=== PATIENT | female | born 1985 | race American Indian/Alaskan Native ===

== ENCOUNTER 2016-07-03 01:07 | Emergency (ER) | payer SELFPAY ==
[2016-07-03] MEDS ORDERED: MORPHINE IV ONE (03:09)
[2016-07-03] MEDS ORDERED: ZOFRAN IV ONE (03:09)
[2016-07-03 04:24] LABS: Anion Gap 16 mmol/L; Blood Urea Nitrogen 10 mg/dL (7-17); Calcium 8.3 mg/dL (8.4-10.2); Carbon Dioxide 21 mmol/L (22-30); Chloride 99.4 mmol/L (98-107); Glucose 102 mg/dL (65-100); Potassium 3.7 mmol/L (3.6-5.0); Sodium 133 mmol/L (137-145)
--- NOTE | 2016-07-03 04:37 | Ultrasound Report ---
FINAL REPORT PROCEDURE: US TRANSVAGINAL TECHNIQUE: Real-time transabdominal sonography in multiple planes of the pelvis was performed. The pelvic structures, especially the ovaries were not optimally visualized. Transvaginal sonography was then performed to better evaluate the structures and/or abnormalities described below with image documentation. CPT 69037 and 41231 HISTORY: post bleeding COMPARISON: No prior studies are available for comparison. FINDINGS: UTERUS Size: 14.5 x 8.7 x 10.5 cm. Endometrial thickness: The endometrium is thickened in the lower uterine segment this measures up to 3.9 centimeters. The echogenicity is mixed. This is most consistent with material in the lower uterine segment. No definitive retained products are noted.. Orientation: anteverted. Cervix: Normal. Fibroids/masses: None. RIGHT Ovary: Not visualized LEFT Ovary: Not visualized Pelvic fluid: None. Other: None. IMPRESSION: The uterus is enlarged with findings consistent with status as discussed. No definitive retained products are identified on this study. Neither ovary is visualized.
--- NOTE | 2016-07-03 04:37 | Ultrasound Report ---
FINAL REPORT PROCEDURE: Pelvic ultrasound with transabdominal and transvaginal imaging TECHNIQUE: Real-time transabdominal sonography in multiple planes of the pelvis was performed. The pelvic structures, especially the ovaries were not optimally visualized. Transvaginal sonography was then performed to better evaluate the structures and/or abnormalities described below with image documentation. CPT 82231 and 37701 HISTORY: post bleeding COMPARISON: No prior studies are available for comparison. FINDINGS: UTERUS Size: 14.5 x 8.7 x 10.5 cm. Endometrial thickness: The endometrium is thickened in the lower uterine segment this measures up to 3.9 centimeters. The echogenicity is mixed. This is most consistent with material in the lower uterine segment. No definitive retained products are noted.. Orientation: anteverted. Cervix: Normal. Fibroids/masses: None. RIGHT Ovary: Not visualized LEFT Ovary: Not visualized Pelvic fluid: None. Other: None. IMPRESSION: The uterus is enlarged with findings consistent with status as discussed. No definitive retained products are identified on this study. Neither ovary is visualized.
[2016-07-03 04:57] LABS: Basophils % (Auto) 0.3 % (0.0-1.8); Eosinophils % (Auto) 0.5 % (0.0-4.3); Hematocrit 31.5 % (30.3-42.9); Hemoglobin 10.4 gm/dl (10.1-14.3); Mean Corpuscular HGB Conc 33 % (30-34); Mean Corpuscular Hemoglobin 29 pg (28-32); Mean Corpuscular Volume 88 fl (79-97); Platelet Count 234 K/mm3 (140-440); Red Blood Count 3.56 M/mm3 (3.65-5.03); Red Cell Distribution Width 14.7 % (13.2-15.2); White Blood Count 16.7 K/mm3 (4.5-11.0)
[2016-07-03] MEDS ORDERED: TORADOL IV ONE (04:59)
[2016-07-03] MEDS ORDERED: NACL 0.9% 1000 ML 1,000 ML IV ONE (04:59)
[2016-07-03] MEDS ORDERED: SUBLIMAZE IV ONE (06:23)
[2016-07-03] MEDS ORDERED: NACL ONE (06:27)
--- NOTE | 2016-07-03 06:32 | Emergency Department Report ---
HPI - General Chief Complaint: Abdominal Pain Time Seen by Provider: 07/03/16 03:34 - HPI HPI: Room 24 The patient is a 31-year-old female presenting with chief complaint of abdominal pain. The patient states she is 2 days (06/30/2016) having delivered at [facility] by Dr. Cheek ([phone]; [phone]). The patient states her pain began the day she delivered. Patient states she is still having vaginal bleeding approximately 5-6 pads per day. Patient denies fever but does admit to chills. Patient complains of pain in the suprapubic and low back. Patient denies dysuria. The patient gives her pain a score of 9/ 10. The patient states she is not breast-feeding Location: [see above] Duration: 2 days Quality: Pain Severity: 9/10 Modifying factors: [see above] Context: [see above] Mode of transportation: [not driving] ED Past Medical Hx - Past Medical History Previous Medical History?: Yes Additional medical history: hypothyroidism - Surgical History Past Surgical History?: Yes Additional Surgical History: thyroid - Family History Family history: no significant - Social History Smoking Status: Never Smoker Substance Use Type: None - Medications Home Medications: Home Medications Medication Instructions Recorded Confirmed Last Taken Type Prednisone [predniSONE 10 mg 10 mg PO .TAPER #1 tab.ds.pk 06/04/15 Unknown Rx (6-Day Pack, 21 Tabs)] oxyCODONE /ACETAMINOPHEN [Percocet 1 tab PO Q6HR PRN #14 tablet 06/04/15 Unknown Rx 5/325] Doxycycline [Vibramycin CAP] 100 mg PO Q12HR #20 capsule 07/03/16 Unknown Rx oxyCODONE /ACETAMINOPHEN [Percocet 1 - 2 tab PO Q6HR PRN #14 tablet 07/03/16 Unknown Rx 5/325] ED Review of Systems ROS: Stated complaint: ABD PAIN/BLEEDING Other details as noted in HPI Comment: All other systems reviewed and negative Constitutional: chills. denies: fever Eyes: denies: eye pain, eye discharge, vision change ENT: denies: ear pain, throat pain Respiratory: denies: cough, shortness of breath, wheezing Cardiovascular: denies: chest pain, palpitations Endocrine: no symptoms reported Gastrointestinal: abdominal pain Genitourinary: abnormal menses Musculoskeletal: back pain Skin: denies: rash, lesions Neurological: denies: headache, weakness, paresthesias Psychiatric: denies: anxiety, depression Hematological/Lymphatic: denies: easy bleeding, easy bruising Physical Exam - Physical Exam Vital Signs: Vital Signs 07/03/16 07/03/16 01:38 01:48 Temperature 98.1 F Pulse Rate 74 Respiratory 20 24 Rate Blood Pressure 126/88 Blood Pressure 126/88 [Left] O2 Sat by Pulse 100 99 Oximetry Physical Exam: GENERAL: The patient is well-developed well-nourished female lying on stretcher tearful. In moderate discomfort. [] HEENT: Normocephalic. Atraumatic. Extraocular motions are intact. Patient has moist mucous membranes. NECK: Supple. Trachea midline CHEST/LUNGS: Clear to auscultation. There is no respiratory distress noted. HEART/CARDIOVASCULAR: Regular. There is no tachycardia. There is no gallop rub or murmur. ABDOMEN: Abdomen is soft, with suprapubic tenderness to palpation. Patient has normal bowel sounds. There is no abdominal distention. SKIN: There is no rash. There is no edema. There is no diaphoresis. NEURO: The patient is awake, alert, and oriented. The patient is cooperative. The patient has normal speech and gait. MUSCULOSKELETAL: There is no evidence of acute injury. PELVIC: Patient refused pelvic exam ED Course Vital Signs 07/03/16 07/03/16 01:38 01:48 Temperature 98.1 F Pulse Rate 74 Respiratory 20 24 Rate Blood Pressure 126/88 Blood Pressure 126/88 [Left] O2 Sat by Pulse 100 99 Oximetry - Reevaluation(s) Reevaluation #1: 07/03/16 09:08 Patient states last dose of pain medication helped her pain. 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 Okay with prescription for Percocet. Have patient follow-up in office next week ED Medical Decision Making - Lab Data Result diagrams: 07/03/16 03:49 07/03/16 03:49 Laboratory Tests 07/03/16 07/03/16 07/03/16 03:49 03:49 03:49 WBC 16.7 H RBC 3.56 L Hgb 10.4 Hct 31.5 MCV 88 MCH 29 MCHC 33 RDW 14.7 Plt Count 234 Lymph % (Auto) 9.1 L [place] % (Auto) 6.5 Eos % (Auto) 0.5 Baso % (Auto) 0.3 Lymph # 1.5 Lincoln # 1.1 H Eos # 0.1 Baso # 0.0 Seg Neutrophils % 83.6 H Seg Neutrophils # 14.0 H Sodium 133 L Potassium 3.7 Chloride 99.4 Carbon Dioxide 21 L Anion Gap 16 BUN 10 Creatinine 0.5 L Estimated GFR > 60 BUN/Creatinine Ratio 20.00 Glucose 102 H Calcium 8.3 L Urine Color Urine Turbidity Urine pH Urine Protein Urine Glucose (UA) Urine Ketones Urine Blood Urine Nitrite Urine Bilirubin Urine Urobilinogen Ur Leukocyte Esterase Urine WBC (Auto) Urine RBC (Auto) U Epithel Cells (Auto) Urine Bacteria (Auto) Blood Type O POSITIVE Antibody Screen TNR TUNDE Antibody Screen Negative 07/03/16 08:31 WBC RBC Hgb Hct MCV MCH MCHC RDW Plt Count Lymph % (Auto) Lincoln % (Auto) Eos % (Auto) Baso % (Auto) Lymph # Lincoln # Eos # Baso # Seg Neutrophils % Seg Neutrophils # Sodium Potassium Chloride Carbon Dioxide Anion Gap BUN Creatinine Estimated GFR BUN/Creatinine Ratio Glucose Calcium Urine Color Straw Urine Turbidity Clear Urine pH 7.0 Urine Protein <15 mg/dl Urine Glucose (UA) Neg Urine Ketones Neg Urine Blood Lg Urine Nitrite Neg Urine Bilirubin Neg Urine Urobilinogen 2.0 Ur Leukocyte Esterase Tr Urine WBC (Auto) 15.0 H Urine RBC (Auto) 28.0 U Epithel Cells (Auto) 1.0 Urine Bacteria (Auto) 1+ Blood Type Antibody Screen TUNDE Antibody Screen - Radiology Data Radiology results: report reviewed (pelvic ultrasound), image reviewed (pelvic ultrasound) Pelvic ultrasound (read by radiologist)-the uterus is enlarged with findings consistent with status. No definitive retained products identified on the study. Neither ovary is visualized. - Differential Diagnosis retained products of conception, UTI, pyelonephritis, appendicitis Critical care attestation.: If time is entered above; I have spent that time in minutes in the direct care of this critically ill patient, excluding procedure time. ED Disposition Clinical Impression: pain, UTI (urinary tract infection), Leukocytosis Disposition: DISCHARGED TO HOME OR SELFCARE Is pt being admited?: No Does the pt Need Aspirin: No Condition: Stable Instructions: Abdominal Pain (ED) Additional Instructions: Return to the emergency department immediately should you develop worsening symptoms, fever, inability to tolerate food or liquid or any other concerns. Prescriptions: Doxycycline [Vibramycin CAP] 100 mg PO Q12HR #20 capsule oxyCODONE /ACETAMINOPHEN [Percocet 5/325] 1 - 2 tab PO Q6HR PRN #14 tablet PRN Reason: Pain Referrals: PRIMARY CARE, [Primary Care Provider] - 3-[address] Cheek, your BLANKET FOLDER [Other] - 7-10 days Time of Disposition: 09:25
--- NOTE | 2016-07-03 07:41 | Cat Scan Report ---
CT scan of abdomen and pelvis with IV contrast: Findings: Normal liver, spleen, pancreas and gallbladder. Normal adrenals and kidney parenchyma. No evidence of hydronephrosis. No free intraperitoneal fluid or air. No evidence of adenopathy. Enlarged uterus with thickened endometrium. Mixed attenuation within the thickened endometrium probably hemorrhagic. Endometritis cannot be excluded. No retained products of conceptus is seen. No mass at adnexa. Gaseous colon with moderate volume stool in colon. Fluid filled loops of small bowel are noted and do not appear to be distended. No definite mesenteric edema noted. Probably normal findings the possibility of enteritis cannot be excluded. Multiple nodular densities in subcutaneous tissue posteriorly around the pelvis probably varicose veins. Impression: Changes in uterus probably . Endometritis cannot be excluded. Additional findings as detailed above.
[2016-07-03 08:38] VITALS: BP 120/78
[2016-07-03 08:58] LABS: Bacteria,Urine 1+ /HPF (Negative); Bilirubin,Urine NEG (Negative); Blood,Urine LG (Negative); Ketones,Urine NEG (Negative); Leukocyte Esterase,Urine TR (Negative); Nitrite,Urine NEG (Negative); Protein,Urine <15 mg/dL mg/dL (Negative)
[2016-07-03] MEDS ORDERED: ROCEPHIN/NS 1 GM/50 ML 1 GM/50 ML BAG IV ONE (09:20)
== END 2016-07-03 10:34 | disposition home or self-care (01) ==
LOC: ED 01:07
DX: N39.0 Urinary tract infection, site not specified (principal); D72.829 Elevated white blood cell count, unspecified; E03.9 Hypothyroidism, unspecified
CPT/HCPCS: 36415; 74177; 76830; 76856; 80048; 81001; 85025; 86850; 86900; 86901; 96361; 96365; 96375; 99285; J0696; J1885; J2270; J2405; J3010; J7030; Q9967

== ENCOUNTER 2017-11-19 01:51 | Emergency (ER) | payer MEDICAID ==
[2017-11-19 03:32] VITALS: BP 98/63
[2017-11-19] MEDS ORDERED: TORADOL IM ONE (03:54)
[2017-11-19] MEDS ORDERED: ZOFRAN ODT ONE (04:00)
[2017-11-19] MEDS ORDERED: ZOFRAN ODT PO ONE (04:04)
[2017-11-19 04:30] LABS: Basophils % (Auto) 0.6 % (0.0-1.8); Eosinophils # (Auto) 0.1 K/mm3 (0.0-0.4); Eosinophils % (Auto) 0.9 % (0.0-4.3); Hematocrit 34.8 % (30.3-42.9); Hemoglobin 11.3 gm/dl (10.1-14.3); Lymphocytes # (Auto) 1.2 K/mm3 (1.2-5.4); Lymphocytes % (Auto) 15.6 % (13.4-35.0); Mean Corpuscular HGB Conc 32 % (30-34); Mean Corpuscular Hemoglobin 29 pg (28-32); Mean Corpuscular Volume 90 fl (79-97); Monocytes # (Auto) 0.6 K/mm3 (0.0-0.8); Monocytes % (Auto) 7.6 % (0.0-7.3); Platelet Count 220 K/mm3 (140-440); Red Blood Count 3.87 M/mm3 (3.65-5.03); Red Cell Distribution Width 14.2 % (13.2-15.2)
[2017-11-19 04:42] LABS: BUN/Creatinine Ratio 27; Blood Urea Nitrogen 16 mg/dL (7-17); Calcium 9.3 mg/dL (8.4-10.2); Hemolysis Index 10
--- NOTE | 2017-11-19 05:11 | XRay Report ---
FINAL REPORT EXAM: XR CHEST ROUTINE 2V HISTORY: cough and fever TECHNIQUE: PA and lateral views of the chest were submitted. FINDINGS: The heart size and mediastinum appear normal. The lungs are clear. Pleural fluid is not seen. The bones and soft tissues do not show any acute changes. IMPRESSION: Normal chest.
--- NOTE | 2017-11-19 05:18 | Emergency Department Report ---
ED Fever HPI - General Chief Complaint: Fever Stated Complaint: FEVER,VOMITING Time Seen by Provider: 11/19/17 05:14 - History of Present Illness Initial Comments: 32-year-old -[place] female comes in for cough and shortness of breath Raynaud's and nasal congestion 2 weeks. Patient reports that she now has a sore throat since she had vomited tonight 1. Patient reports that both [place] sick. Patient has not taken any medication for fever or cold medication. Patient does admit to postnasal drip. Patient reports a past medical history of hypothyroidism and is currently on Synthroid. He has no known drug allergies. Timing/Duration: week (2) Fever Therapy DATASTAGE ARCHITECT: none Associated Symptoms: cough, headache ED Review of Systems ROS: Stated complaint: FEVER,VOMITING Other details as noted in HPI Constitutional: fever ENT: throat pain, congestion Respiratory: cough Gastrointestinal: vomiting (times 1) ED Past Medical Hx - Past Medical History Additional medical history: hypothyroidism - Surgical History Additional Surgical History: thyroid - Social History Smoking Status: Current Every Day Smoker Substance Use Type: None - Medications Home Medications: Home Medications Medication Instructions Recorded Confirmed Last Taken Type Doxycycline [Vibramycin CAP] 100 mg PO Q12HR #20 capsule 07/03/16 Unknown Rx Iron,Carb/Vit C/Vit B12/Folic 1 each PO DAILY 07/03/16 07/03/16 07/02/16 History [Iron 100 Plus Tablet] Levothyroxine (Nf) [Synthroid] 200 mcg PO QAM 07/03/16 07/03/16 07/02/16 History oxyCODONE /ACETAMINOPHEN [Percocet 1 - 2 tab PO Q6HR PRN #14 tablet 07/03/16 Unknown Rx 5/325] Benzonatate [Tessalon Perle] 100 mg PO TID #30 capsule 11/19/17 Unknown Rx Dexchlorpheniram/Phenylephrine 1 each PO Q6H #15 tab 11/19/17 Unknown Rx [Rymed Tablet] Ibuprofen [Motrin 600 MG tab] 600 mg PO Q8H PRN #15 tablet 11/19/17 Unknown Rx ED Physical Exam - General Limitations: No Limitations General appearance: alert, in no apparent distress - Head Head exam: Present: atraumatic, normocephalic - Eye Eye exam: Present: EOMI - ENT ENT exam: Present: mucous membranes moist - Expanded ENT Exam Expanded Throat exam: Positive: tonsillar erythema. Negative: tonsillomegaly, tonsillar exudate - Neck Neck exam: Present: tenderness, full ROM. Absent: lymphadenopathy - Respiratory Respiratory exam: Present: normal lung sounds bilaterally. Absent: respiratory distress - Cardiovascular Cardiovascular Exam: Present: regular rate, normal rhythm. Absent: systolic murmur, diastolic murmur, rubs, gallop - Neurological Exam Neurological exam: Present: alert, oriented X3 - Psychiatric Psychiatric exam: Present: normal affect, normal mood - Skin Skin exam: Present: warm, dry, intact, normal color. Absent: rash ED Course Vital Signs 11/19/17 02:13 Temperature 98.8 F Pulse Rate 80 Respiratory 18 Rate Blood Pressure 98/63 O2 Sat by Pulse 100 Oximetry ED Medical Decision Making - Lab Data Result diagrams: 11/19/17 04:08 11/19/17 04:08 - Medical Decision Making Patient has been evaluated by this provider fast track. Toradol given for pain management A rapid strep has been sent off has come back negative Discharge patient on Tessalon Perles, ibuprofen, Rymed Critical care attestation.: If time is entered above; I have spent that time in minutes in the direct care of this critically ill patient, excluding procedure time. ED Disposition Clinical Impression: Allergic rhinitis Qualifiers: Allergic rhinitis trigger: unspecified Allergic rhinitis seasonality: unspecified Qualified Code(s): J30.9 - Allergic rhinitis, unspecified Disposition: DC-01 TO HOME OR SELFCARE Is pt being admited?: No Does the pt Need Aspirin: No Condition: Stable Instructions: Allergic Rhinitis (ED) Additional Instructions: Please take medication as prescribed. If her symptoms persist or gets worse please follow up with her primary care provider Prescriptions: Benzonatate [Tessalon Perle] 100 mg PO TID #30 capsule Dexchlorpheniram/Phenylephrine [Rymed Tablet] 1 each PO Q6H #15 tab Ibuprofen [Motrin 600 MG tab] 600 mg PO Q8H PRN #15 tablet PRN Reason: Pain Referrals: PRIMARY CARE, [Primary Care Provider] - 3-5 Days [facility] [Provider Group] - 3-5 Days Forms: Work/School Release Form(ED)
[2017-11-19] MEDS ORDERED: NORCO 5/325 PO ONE (05:44)
== END 2017-11-19 06:05 | disposition home or self-care (01) ==
LOC: ED 01:51
DX: J30.9 Allergic rhinitis, unspecified (principal); E03.9 Hypothyroidism, unspecified; F17.200 Nicotine dependence, unspecified, uncomplicated
CPT/HCPCS: 36415; 71046; 80048; 84703; 85025; 87116; 87430; 96372; 99284; J1885; Q0162

== ENCOUNTER 2018-05-28 10:35 | Emergency (ER) | payer MEDICAID ==
[2018-05-28 10:42] VITALS: BP 113/77
[2018-05-28 12:38] LABS: Basophils # (Auto) 0.1 K/mm3 (0.0-0.1); Basophils % (Auto) 0.5 % (0.0-1.8); Eosinophils % (Auto) 0.4 % (0.0-4.3); Hematocrit 38.6 % (30.3-42.9); Hemoglobin 12.7 gm/dl (10.1-14.3); Lymphocytes # (Auto) 1.6 K/mm3 (1.2-5.4); Lymphocytes % (Auto) 13.8 % (13.4-35.0); Mean Corpuscular HGB Conc 33 % (30-34); Mean Corpuscular Volume 87 fl (79-97); Monocytes # (Auto) 0.5 K/mm3 (0.0-0.8); Monocytes % (Auto) 4.3 % (0.0-7.3); Platelet Count 276 K/mm3 (140-440); Red Blood Count 4.45 M/mm3 (3.65-5.03)
--- NOTE | 2018-05-28 12:50 | XRay Report ---
AP CHEST: HISTORY: Fatigue AP view of the chest demonstrates a normal mediastinal and cardiac contour with clear lungs and normal bony and soft tissue structures. IMPRESSION: Unremarkable AP chest.
[2018-05-28 13:00] LABS: Alanine Aminotransferase 21 units/L (7-56); Albumin 4.3 g/dL (3.9-5); BUN/Creatinine Ratio 29; Blood Urea Nitrogen 20 mg/dL (7-17); Calcium 9.1 mg/dL (8.4-10.2); Hemolysis Index 7
--- NOTE | 2018-05-28 13:49 | Emergency Department Report ---
ED General Adult HPI - General Chief complaint: Weakness Stated complaint: N,V/ARM LIMP,SWELLING,WEAKNESS Time Seen by Provider: 05/28/18 11:28 Source: patient Mode of arrival: Ambulatory Limitations: No Limitations - History of Present Illness Initial comments: The patient presents to emergency department with a chief complaint of fatigue and feeling weak. Patient also complains that hasn't been swollen and she's had muscle aches. The patient states she had a total thyroidectomy done 5 years ago and has been on levothyroxine at 225 g daily until last month. Patient states she lost her insurance and was not able to follow with the primary care physician thus the reason for her not having her levothyroxine for a month. Patient complains of feeling cold all the time and that her hair is breaking off. -: Gradual Severity scale (0 -10): 0 Improves with: none Worsens with: none Associated Symptoms: denies other symptoms Treatments Prior to Arrival: none - Related Data Home Medications Medication Instructions Recorded Confirmed Last Taken Iron,Carb/Vit C/Vit B12/Folic 1 each PO DAILY 07/03/16 07/03/16 07/02/16 [Iron 100 Plus Tablet] Levothyroxine (Nf) [Synthroid] 200 mcg PO QAM 07/03/16 07/03/16 07/02/16 Previous Rx's Medication Instructions Recorded Last Taken Type Doxycycline [Vibramycin CAP] 100 mg PO Q12HR #20 capsule 07/03/16 Unknown Rx oxyCODONE /ACETAMINOPHEN [Percocet 1 - 2 tab PO Q6HR PRN #14 tablet 07/03/16 Unknown Rx 5/325] Benzonatate [Tessalon Perle] 100 mg PO TID #30 capsule 11/19/17 Unknown Rx Dexchlorpheniram/Phenylephrine 1 each PO Q6H #15 tab 11/19/17 Unknown Rx [Rymed Tablet] Ibuprofen [Motrin 600 MG tab] 600 mg PO Q8H PRN #15 tablet 11/19/17 Unknown Rx Levothyroxine [Synthroid] 150 mcg PO QAM #15 tablet 05/28/18 Unknown Rx Allergies Allergy/AdvReac Type Severity Reaction Status Date / Time No Known Allergies Allergy Unverified 05/31/15 12:11 ED Review of Systems ROS: Stated complaint: N,V/ARM LIMP,SWELLING,WEAKNESS Other details as noted in HPI Comment: All other systems reviewed and negative Constitutional: denies: chills, fever Eyes: denies: eye pain, eye discharge, vision change ENT: denies: ear pain, throat pain Respiratory: denies: cough, shortness of breath, wheezing Cardiovascular: denies: chest pain, palpitations Endocrine: no symptoms reported Gastrointestinal: denies: abdominal pain, nausea, diarrhea Genitourinary: denies: urgency, dysuria, discharge Musculoskeletal: myalgia. denies: back pain, joint swelling, arthralgia Skin: denies: rash, lesions Neurological: denies: headache, weakness, paresthesias Psychiatric: denies: anxiety, depression Hematological/Lymphatic: denies: easy bleeding, easy bruising ED Past Medical Hx - Past Medical History Previous Medical History?: Yes Additional medical history: hypothyroidism - Surgical History Past Surgical History?: Yes Additional Surgical History: thyroidectomy - Social History Smoking Status: Current Every Day Smoker Substance Use Type: Marijuana - Medications Home Medications: Home Medications Medication Instructions Recorded Confirmed Last Taken Type Doxycycline [Vibramycin CAP] 100 mg PO Q12HR #20 capsule 07/03/16 Unknown Rx Iron,Carb/Vit C/Vit B12/Folic 1 each PO DAILY 07/03/16 07/03/16 07/02/16 History [Iron 100 Plus Tablet] Levothyroxine (Nf) [Synthroid] 200 mcg PO QAM 07/03/16 07/03/16 07/02/16 History oxyCODONE /ACETAMINOPHEN [Percocet 1 - 2 tab PO Q6HR PRN #14 tablet 07/03/16 Unknown Rx 5/325] Benzonatate [Tessalon Perle] 100 mg PO TID #30 capsule 11/19/17 Unknown Rx Dexchlorpheniram/Phenylephrine 1 each PO Q6H #15 tab 11/19/17 Unknown Rx [Rymed Tablet] Ibuprofen [Motrin 600 MG tab] 600 mg PO Q8H PRN #15 tablet 11/19/17 Unknown Rx Levothyroxine [Synthroid] 150 mcg PO QAM #15 tablet 05/28/18 Unknown Rx ED Physical Exam - General Limitations: No Limitations General appearance: alert, in no apparent distress - Head Head exam: Present: atraumatic, normocephalic - Eye Eye exam: Present: normal appearance. Absent: PERRL, EOMI - ENT ENT exam: Present: mucous membranes moist - Neck Neck exam: Present: normal inspection - Respiratory Respiratory exam: Present: normal lung sounds bilaterally. Absent: respiratory distress, wheezes, rales - Cardiovascular Cardiovascular Exam: Present: regular rate, normal rhythm. Absent: systolic murmur, diastolic murmur, rubs, gallop - GI/Abdominal GI/Abdominal exam: Present: soft, normal bowel sounds. Absent: distended, tenderness - Extremities Exam Extremities exam: Present: normal inspection - Back Exam Back exam: Present: normal inspection - Neurological Exam Neurological exam: Present: alert, oriented X3, CN II-XII intact. Absent: motor sensory deficit - Psychiatric Psychiatric exam: Present: normal affect, normal mood - Skin Skin exam: Present: warm, dry, intact, normal color, other (no pretibial rash on exam). Absent: rash ED Course Vital Signs 05/28/18 10:41 Temperature 98.7 F Pulse Rate 86 Respiratory 16 Rate Blood Pressure 113/77 O2 Sat by Pulse 99 Oximetry ED Medical Decision Making - Lab Data Result diagrams: 05/28/18 12:16 05/28/18 12:16 Lab Results 05/28/18 05/28/18 05/28/18 Range/Units 12:16 12:16 12:16 WBC 11.3 H (4.5-11.0) K/mm3 RBC 4.45 (3.65-5.03) M/mm3 Hgb 12.7 (10.1-14.3) gm/dl Hct 38.6 (30.3-42.9) % MCV 87 (79-97) fl MCH 29 (28-32) pg MCHC 33 (30-34) % RDW 15.0 (13.2-15.2) % Plt Count 276 (140-440) K/mm3 Lymph % (Auto) 13.8 (13.4-35.0) % [place] % (Auto) 4.3 (0.0-7.3) % Eos % (Auto) 0.4 (0.0-4.3) % Baso % (Auto) 0.5 (0.0-1.8) % Lymph # 1.6 (1.2-5.4) K/mm3 [place] # 0.5 (0.0-0.8) K/mm3 Eos # 0.0 (0.0-0.4) K/mm3 Baso # 0.1 (0.0-0.1) K/mm3 Seg Neutrophils % 81.0 H (40.0-70.0) % Seg Neutrophils # 9.2 H (1.8-7.7) K/mm3 Sodium 140 (137-145) mmol/L Potassium 3.8 (3.6-5.0) mmol/L Chloride 103.8 (98-107) mmol/L Carbon Dioxide 24 (22-30) mmol/L Anion Gap 16 mmol/L BUN 20 H (7-17) mg/dL Creatinine 0.7 (0.7-1.2) mg/dL Estimated GFR > 60 ml/min BUN/Creatinine Ratio 29 % Glucose 94 (65-100) mg/dL Calcium 9.1 (8.4-10.2) mg/dL Phosphorus (2.5-4.5) mg/dL Magnesium (1.7-2.3) mg/dL Total Bilirubin 0.30 (0.1-1.2) mg/dL AST 47 H (5-40) units/L ALT 21 (7-56) units/L Alkaline Phosphatase 52 (35-129) units/L Total Protein 7.1 (6.3-8.2) g/dL Albumin 4.3 (3.9-5) g/dL Albumin/Globulin Ratio 1.5 % Thyroxine (T4) 0.7 L (4.0-12.0) ug/dL 05/28/18 Range/Units 12:16 WBC (4.5-11.0) K/mm3 RBC (3.65-5.03) M/mm3 Hgb (10.1-14.3) gm/dl Hct (30.3-42.9) % MCV (79-97) fl MCH (28-32) pg MCHC (30-34) % RDW (13.2-15.2) % Plt Count (140-440) K/mm3 Lymph % (Auto) (13.4-35.0) % [place] % (Auto) (0.0-7.3) % Eos % (Auto) (0.0-4.3) % Baso % (Auto) (0.0-1.8) % Lymph # (1.2-5.4) K/mm3 [place] # (0.0-0.8) K/mm3 Eos # (0.0-0.4) K/mm3 Baso # (0.0-0.1) K/mm3 Seg Neutrophils % (40.0-70.0) % Seg Neutrophils # (1.8-7.7) K/mm3 Sodium (137-145) mmol/L Potassium (3.6-5.0) mmol/L Chloride (98-107) mmol/L Carbon Dioxide (22-30) mmol/L Anion Gap mmol/L BUN (7-17) mg/dL Creatinine (0.7-1.2) mg/dL Estimated GFR ml/min BUN/Creatinine Ratio % Glucose (65-100) mg/dL Calcium (8.4-10.2) mg/dL Phosphorus 2.60 (2.5-4.5) mg/dL Magnesium 1.80 (1.7-2.3) mg/dL Total Bilirubin (0.1-1.2) mg/dL AST (5-40) units/L ALT (7-56) units/L Alkaline Phosphatase (35-129) units/L Total Protein (6.3-8.2) g/dL Albumin (3.9-5) g/dL Albumin/Globulin Ratio % Thyroxine (T4) (4.0-12.0) ug/dL Lab Results 05/28/18 05/28/18 05/28/18 Range/Units 12:16 12:16 12:16 WBC 11.3 H (4.5-11.0) K/mm3 RBC 4.45 (3.65-5.03) M/mm3 Hgb 12.7 (10.1-14.3) gm/dl Hct 38.6 (30.3-42.9) % MCV 87 (79-97) fl MCH 29 (28-32) pg MCHC 33 (30-34) % RDW 15.0 (13.2-15.2) % Plt Count 276 (140-440) K/mm3 Lymph % (Auto) 13.8 (13.4-35.0) % [place] % (Auto) 4.3 (0.0-7.3) % Eos % (Auto) 0.4 (0.0-4.3) % Baso % (Auto) 0.5 (0.0-1.8) % Lymph # 1.6 (1.2-5.4) K/mm3 [place] # 0.5 (0.0-0.8) K/mm3 Eos # 0.0 (0.0-0.4) K/mm3 Baso # 0.1 (0.0-0.1) K/mm3 Seg Neutrophils % 81.0 H (40.0-70.0) % Seg Neutrophils # 9.2 H (1.8-7.7) K/mm3 Sodium 140 (137-145) mmol/L Potassium 3.8 (3.6-5.0) mmol/L Chloride 103.8 (98-107) mmol/L Carbon Dioxide 24 (22-30) mmol/L Anion Gap 16 mmol/L BUN 20 H (7-17) mg/dL Creatinine 0.7 (0.7-1.2) mg/dL Estimated GFR > 60 ml/min BUN/Creatinine Ratio 29 % Glucose 94 (65-100) mg/dL Calcium 9.1 (8.4-10.2) mg/dL Phosphorus (2.5-4.5) mg/dL Magnesium (1.7-2.3) mg/dL Total Bilirubin 0.30 (0.1-1.2) mg/dL AST 47 H (5-40) units/L ALT 21 (7-56) units/L Alkaline Phosphatase 52 (35-129) units/L Total Protein 7.1 (6.3-8.2) g/dL Albumin 4.3 (3.9-5) g/dL Albumin/Globulin Ratio 1.5 % TSH (0.270-4.200) mlU/mL Thyroxine (T4) 0.7 L (4.0-12.0) ug/dL Urine Color (Yellow) Urine Turbidity (Clear) Urine pH (5.0-7.0) Ur Specific [place] (1.003-1.030) Urine Protein (Negative) mg/dL Urine Glucose (UA) (Negative) mg/dL Urine Ketones (Negative) mg/dL Urine Blood (Negative) Urine Nitrite (Negative) Urine Bilirubin (Negative) Urine Urobilinogen (<2.0) mg/dL Ur Leukocyte Esterase (Negative) Urine WBC (Auto) (0.0-6.0) /HPF Urine RBC (Auto) (0.0-6.0) /HPF U Epithel Cells (Auto) (0-13.0) /HPF Urine Mucus /HPF 05/28/18 05/28/18 05/28/18 Range/Units 12:16 12:16 14:14 WBC (4.5-11.0) K/mm3 RBC (3.65-5.03) M/mm3 Hgb (10.1-14.3) gm/dl Hct (30.3-42.9) % MCV (79-97) fl MCH (28-32) pg MCHC (30-34) % RDW (13.2-15.2) % Plt Count (140-440) K/mm3 Lymph % (Auto) (13.4-35.0) % [place] % (Auto) (0.0-7.3) % Eos % (Auto) (0.0-4.3) % Baso % (Auto) (0.0-1.8) % Lymph # (1.2-5.4) K/mm3 [place] # (0.0-0.8) K/mm3 Eos # (0.0-0.4) K/mm3 Baso # (0.0-0.1) K/mm3 Seg Neutrophils % (40.0-70.0) % Seg Neutrophils # (1.8-7.7) K/mm3 Sodium (137-145) mmol/L Potassium (3.6-5.0) mmol/L Chloride (98-107) mmol/L Carbon Dioxide (22-30) mmol/L Anion Gap mmol/L BUN (7-17) mg/dL Creatinine (0.7-1.2) mg/dL Estimated GFR ml/min BUN/Creatinine Ratio % Glucose (65-100) mg/dL Calcium (8.4-10.2) mg/dL Phosphorus 2.60 (2.5-4.5) mg/dL Magnesium 1.80 (1.7-2.3) mg/dL Total Bilirubin (0.1-1.2) mg/dL AST (5-40) units/L ALT (7-56) units/L Alkaline Phosphatase (35-129) units/L Total Protein (6.3-8.2) g/dL Albumin (3.9-5) g/dL Albumin/Globulin Ratio % TSH 93.660 H (0.270-4.200) mlU/mL Thyroxine (T4) (4.0-12.0) ug/dL Urine Color Yellow (Yellow) Urine Turbidity Clear (Clear) Urine pH 5.0 (5.0-7.0) Ur Specific [place] 1.038 H (1.003-1.030) Urine Protein <15 mg/dl (Negative) mg/dL Urine Glucose (UA) Neg (Negative) mg/dL Urine Ketones Tr (Negative) mg/dL Urine Blood Neg (Negative) Urine Nitrite Neg (Negative) Urine Bilirubin Neg (Negative) Urine Urobilinogen < 2.0 (<2.0) mg/dL Ur Leukocyte Esterase Neg (Negative) Urine WBC (Auto) 1.0 (0.0-6.0) /HPF Urine RBC (Auto) 1.0 (0.0-6.0) /HPF U Epithel Cells (Auto) 2.0 (0-13.0) /HPF Urine Mucus 1+ /HPF - Radiology Data Radiology results: report reviewed - Medical Decision Making Test results the patient and the need to follow up as an outpatient for better control of her hypothyroidism Critical care attestation.: If time is entered above; I have spent that time in minutes in the direct care of this critically ill patient, excluding procedure time. ED Disposition Clinical Impression: Hypothyroidism Disposition: DC- TO HOME OR SELFCARE Is pt being admited?: No Does the pt Need Aspirin: No Condition: Stable Instructions: Hypothyroidism (ED) Additional Instructions: return if worse Prescriptions: Levothyroxine [Synthroid] 150 mcg PO QAM #15 tablet Referrals: [facility] [Other] - 3-5 Days RACHEL MONTGOMERY MD [Staff Physician] - 3-5 Days [facility] [Outside] - 3-5 Days [facility] [Provider Group] - 3-5 Days [facility] [Provider Group] - 3-5 Days Time of Disposition: 15:00
[2018-05-28 14:33] LABS: Bilirubin,Urine NEG (Negative); Color,Urine Yellow (Yellow)
[2018-05-28 14:34] LABS: Blood,Urine NEG (Negative); Mucus,Urine 1+ /HPF; Protein,Urine <15 mg/dL mg/dL (Negative); Urobilinogen,Urine < 2.0 mg/dL (<2.0)
[2018-05-28] MEDS ORDERED: ZOFRAN ODT PO ONE (14:53)
[2018-05-28] MEDS ORDERED: NORCO 5/325 PO ONE (14:53)
== END 2018-05-28 15:14 | disposition home or self-care (01) ==
LOC: ED 10:35
DX: E03.9 Hypothyroidism, unspecified (principal); F17.200 Nicotine dependence, unspecified, uncomplicated; F12.10 Cannabis abuse, uncomplicated; Z90.89 Acquired absence of other organs; Z79.899 Other long term (current) drug therapy
CPT/HCPCS: 36415; 71045; 80053; 81001; 83735; 84100; 84436; 84443; 84481; 85025; Q0162

== ENCOUNTER 2021-01-06 16:48 | Emergency (ER) | payer MEDICAID ==
[2021-01-06 16:57] VITALS: BP 102/64
[2021-01-06] MEDS ORDERED: METOCLOPRAMIDE 10 MG/2 ML INJ IV ONE (18:10)
[2021-01-06] MEDS ORDERED: diphenhydrAMINE 50 MG/ML VIAL IV ONE (18:10)
[2021-01-06] MEDS ORDERED: SODIUM CHLORIDE 0.9% 1000 ML 1,000 ML IV ONE (18:10)
--- NOTE | 2021-01-06 18:14 | Emergency Department Report ---
ED General Adult HPI - General Chief complaint: Headache Stated complaint: HEADACHE/ VAG SPOTTING Time Seen by Provider: 01/06/21 17:31 Source: patient Mode of arrival: Ambulatory Limitations: No Limitations - History of Present Illness Initial comments: The patient was evaluated in the emergency department for symptoms described in the history of present illness. He/she was evaluated in the context of the global COVID-19 pandemic, which necessitated consideration that the patient might be at risk for infection with the virus that causes COVID-19. Institutional protocols and algorithms that pertain to the evaluation of patients at risk for COVID-19 are in a state of rapid change based on information released by regulatory bodies including the CDC and federal and state organizations. These policies and algorithms were followed during the patient's care in the emergency department. Please note that these policies, procedures and recommendations changed on a rapid basis. 36-year-old -Turk[place] female who reports is approximately 9 weeks presents to the emergency room complaining of a headache that she has had for a month and a half. She complains of nausea with some vomiting. She reports that the pain is on the zoroastrian sides and when she cries it is in the frontal area. Patient states she had taken Tylenol. She reports she has spoke to her BODYWORK THERAPIST which is [employer] and they told her to come to the emergency room. Patient denies any head injury no loss of vision no change of vision no worst headache of her life. Patient states that she was seen in emergency room a few days ago and was given fluids and sent home. Patient states that she wants to know why she keeps having headaches. Patient does report she is not eating much. - Related Data Home Medications Medication Instructions Recorded Confirmed Last Taken Iron,Carb/Vit C/Vit B12/Folic 1 each PO DAILY 07/03/16 07/03/16 07/02/16 [Iron 100 Plus Tablet] Levothyroxine (Nf) [Synthroid] 200 mcg PO QAM 07/03/16 07/03/16 07/02/16 Previous Rx's Medication Instructions Recorded Last Taken Type DOXYCYCLINE Hyclate [Vibramycin 100 mg PO Q12HR #20 capsule 07/03/16 Unknown Rx CAP] oxyCODONE /ACETAMINOPHEN [Percocet 1 - 2 tab PO Q6HR PRN #14 tablet 07/03/16 Unknown Rx 5/325] Benzonatate [Tessalon Perle] 100 mg PO TID #30 capsule 11/19/17 Unknown Rx Dexchlorpheniram/Phenylephrine 1 each PO Q6H #15 tab 11/19/17 Unknown Rx [Rymed Tablet] Ibuprofen [Motrin 600 MG tab] 600 mg PO Q8H PRN #15 tablet 11/19/17 Unknown Rx Levothyroxine [Synthroid] 150 mcg PO QAM #15 tablet 05/28/18 Unknown Rx Ondansetron [Zofran Odt] 4 mg PO Q8HR PRN #12 tab.rapdis 01/06/21 Unknown Rx Allergies Allergy/AdvReac Type Severity Reaction Status Date / Time No Known Allergies Allergy Verified 01/06/21 16:50 ED Review of Systems ROS: Stated complaint: HEADACHE/ VAG SPOTTING Other details as noted in HPI Comment: All other systems reviewed and negative ED Past Medical Hx - Past Medical History Additional medical history: hypothyroidism/ HIGH CHOLESTROL - Surgical History Additional Surgical History: thyroidectomy - Social History Smoking Status: Current Every Day Smoker Substance Use Type: Marijuana - Medications Home Medications: Home Medications Medication Instructions Recorded Confirmed Last Taken Type DOXYCYCLINE Hyclate [Vibramycin 100 mg PO Q12HR #20 capsule 07/03/16 Unknown Rx CAP] Iron,Carb/Vit C/Vit B12/Folic 1 each PO DAILY 07/03/16 07/03/16 07/02/16 History [Iron 100 Plus Tablet] Levothyroxine (Nf) [Synthroid] 200 mcg PO QAM 07/03/16 07/03/16 07/02/16 History oxyCODONE /ACETAMINOPHEN [Percocet 1 - 2 tab PO Q6HR PRN #14 tablet 07/03/16 Unknown Rx 5/325] Benzonatate [Tessalon Perle] 100 mg PO TID #30 capsule 11/19/17 Unknown Rx Dexchlorpheniram/Phenylephrine 1 each PO Q6H #15 tab 11/19/17 Unknown Rx [Rymed Tablet] Ibuprofen [Motrin 600 MG tab] 600 mg PO Q8H PRN #15 tablet 11/19/17 Unknown Rx Levothyroxine [Synthroid] 150 mcg PO QAM #15 tablet 05/28/18 Unknown Rx Ondansetron [Zofran Odt] 4 mg PO Q8HR PRN #12 tab.rapdis 01/06/21 Unknown Rx ED Physical Exam - General Limitations: No Limitations General appearance: alert, in no apparent distress - Head Head exam: Present: atraumatic, normocephalic - Eye Eye exam: Present: normal appearance - ENT ENT exam: Present: mucous membranes moist - Neck Neck exam: Present: normal inspection - Respiratory Respiratory exam: Present: normal lung sounds bilaterally. Absent: respiratory distress - Cardiovascular Cardiovascular Exam: Present: regular rate, normal rhythm. Absent: systolic mur mur, diastolic murmur, rubs, gallop - GI/Abdominal GI/Abdominal exam: Present: soft, normal bowel sounds - Extremities Exam Extremities exam: Present: normal inspection - Back Exam Back exam: Present: normal inspection - Neurological Exam Neurological exam: Present: alert, oriented X3 - Psychiatric Psychiatric exam: Present: normal affect, normal mood - Skin Skin exam: Present: warm, dry, intact, normal color. Absent: rash ED Course Vital Signs 01/06/21 01/06/21 16:56 17:42 Temperature 98.7 F Pulse Rate 65 Respiratory 22 Rate Blood Pressure 102/64 O2 Sat by Pulse 99 98 Oximetry ED Medical Decision Making - Lab Data Result diagrams: 01/06/21 18:13 01/06/21 18:13 - Radiology Data Radiology results: [place] [address] Ultrasound Report Signed Patient: ALCIDES MUSE MR#: [id number] : 1985 Acct:[id number] Age/Sex: 36 / F ADM Date: 01/06/21 Loc: ED Attending Dr: Ordering Physician: TONG BATRES Date of Service: 01/06/21 Procedure(s): US OB transvaginal Accession Number(s): [id number] cc: TONG BATRES ULTRASOUND OBSTETRIC REASON FOR EXAM: vaginal spotting TECHNIQUE: Transabdominal and transvaginal ultrasound was performed to evaluate a first trimester . COMPARISON: None available. FINDINGS: FINDINGS: The pole, yolk sac, and gestational sac are normal in appearance. [place]-rump length: 19.3 mm. This corresponds with a gestational age of 8 weeks 4 days. heart rate: 172 bpm Perigestational hemorrhage: No evidence of perigestational hemorrhage on the provided images. MATERNAL FINDINGS: Uterus measures 10.2 cm. No myometrial mass. IUP as above. Neither ovary is visualized. No significant free fluid. IMPRESSION: 1. Viable intrauterine . Gestational age is 8 weeks 4 days by ultrasound. Recommend clinical screening and ultrasound follow-up in the second trimester to screen for anomalies. 2. No significant abnormality. Signer Name: Drake Thrasher MD Signed: 01/06/2021 8:31 PM Workstation Name: [id number] Transcribed By: SARABJIT Dictated By: DRAKE THRASHER MD Electronically Authenticated By: DRAKE THRASHER MD Signed Date/Time: 01/06/212030 DD/ 28 TD/TT: Print - Medical Decision Making 36-year-old -Turk[place] female who reports is approximately 9 weeks presents to the emergency room complaining of a headache that she has had for a month and a half. She complains of nausea with some vomiting. She reports that the pain is on the zoroastrian sides and when she cries it is in the frontal area. Patient states she had taken Tylenol. She reports she has spoke to her BODYWORK THERAPIST which is [employer] and they told her to come to the emergency room. Patient denies any head injury no loss of vision no change of vision no worst headache of her life. Patient states that she was seen in emergency room a few days ago and was given fluids and sent home. Patient states that she wants to know why she keeps having headaches. Patient does report she is not eating much. Critical care attestation.: If time is entered above; I have spent that time in minutes in the direct care of this critically ill patient, excluding procedure time. ED Disposition Clinical Impression: Headache in Disposition: 01 HOME / SELF CARE / HOMELESS Is pt being admited?: No Does the pt Need Aspirin: No Condition: Stable Additional Instructions: Ultrasound shows you are 8 weeks and 4 days . Your labs are stable. Please be sure to increase your fluid intake advance her diet as tolerated and follow-up with your BODYWORK THERAPIST in the next 3 to 5 days. Zofran and Benadryl as needed for nausea vomiting. Prescriptions: Ondansetron [Zofran Odt] 4 mg PO Q8HR PRN #12 tab.rapdis PRN Reason: Nausea And Vomiting Forms: Work/School Release Form(ED) Time of Disposition: 21:33
[2021-01-06 18:36] LABS: Basophils % (Auto) 0.4 % (0.0-1.8); Eosinophils % (Auto) 0.6 % (0.0-4.3); Hematocrit 33.2 % (30.3-42.9); Hemoglobin 10.9 gm/dl (10.1-14.3); Lymphocytes # (Auto) 1.9 K/mm3 (1.2-5.4); Lymphocytes % (Auto) 33.5 % (13.4-35.0); Mean Corpuscular HGB Conc 33 % (30-34); Mean Corpuscular Volume 88 fl (79-97); Monocytes # (Auto) 0.4 K/mm3 (0.0-0.8); Monocytes % (Auto) 7.1 % (0.0-7.3); Platelet Count 232 K/mm3 (140-440); Red Blood Count 3.77 M/mm3 (3.65-5.03); Red Cell Distribution Width 12.9 % (13.2-15.2)
[2021-01-06 18:56] LABS: Alanine Aminotransferase 8 units/L (7-56); Albumin 4.2 g/dL (3.9-5); Blood Urea Nitrogen 6 mg/dL (7-17); Calcium 9.2 mg/dL (8.4-10.2); Hemolysis Index 7
[2021-01-06 18:57] LABS: BUN/Creatinine Ratio 10
--- NOTE | 2021-01-06 20:36 | Ultrasound Report ---
ULTRASOUND OBSTETRIC REASON FOR EXAM: vaginal spotting TECHNIQUE: Transabdominal and transvaginal ultrasound was performed to evaluate a first trimester pre gnancy. COMPARISON: None available. FINDINGS: FINDINGS: The pole, yolk sac, and gestational sac are normal in appearance. [place]-rump length: 19.3 mm. This corresponds with a gestational age of 8 weeks 4 days. heart rate: 172 bpm Perigestational hemorrhage: No evidence of perigestational hemorrhage on the provided images. MATERNAL FINDINGS: Uterus measures 10.2 cm. No myometrial mass. IUP as above. Neither ovary is visualized. No significant free fluid. IMPRESSION: 1. Viable intrauterine . Gestational age is 8 weeks 4 days by ultrasound. Recommend clinical screening and ultrasound follow-up in the second trimester to screen for anomalies. 2. No significant abnormality. Signer Name: Fausto Hunt MD Signed: 01/06/2021 8:31 PM Workstation Name: [id number]
== END 2021-01-06 22:24 | disposition home or self-care (01) ==
LOC: ED 16:48
DX: O26.891 Other specified pregnancy related conditions, first trimester (principal); R51.9 Headache, unspecified; F17.200 Nicotine dependence, unspecified, uncomplicated; F12.90 Cannabis use, unspecified, uncomplicated; E78.00 Pure hypercholesterolemia, unspecified; Z3A.09 9 weeks gestation of pregnancy; Z79.899 Other long term (current) drug therapy
CPT/HCPCS: 36415; 76801; 76817; 80053; 84702; 85025; 86900; 86901; 96361; 96374; 96375; 99284; J1200; J2765; J7030; Q0162

== ENCOUNTER 2021-01-30 17:17 | Emergency (ER) | payer MEDICAID ==
--- NOTE | 2021-01-30 21:32 | Emergency Department Report ---
ED ENT HPI - General Chief complaint: Headache Stated complaint: HEADACHE/SINUS INFECTION Time Seen by Provider: 01/30/21 21:27 Source: patient Mode of arrival: Ambulatory Limitations: No Limitations - History of Present Illness Initial comments: 36-year-old 12-week female with no significant past medical history presents emerged department complaining of a 3-month history of nagging intermittent dull throbbing headaches off and on associated with sinus pressure. The last 2 to 3 days she began to experience increasing sinus pressure associ ated with nasal discharge and and the expulsion of brownish-yellowish mucus. Reports no hemoptysis, no hematemesis hematochezia, no tinnitus, no presyncope, no chest pain, no palpitation, no shortness of breath, no voice change, no dysphagia however she does occasionally have a sore throat from time to time -: Gradual, days(s), month(s) Severity: mild Quality: dull Consistency: constant Improves with: none Worsens with: none Context-Epistaxis: warfarin use Associated Symptoms: sore throat - Related Data Home Medications Medication Instructions Recorded Confirmed Last Taken Iron,Carb/Vit C/Vit B12/Folic 1 each PO DAILY 07/03/16 07/03/16 07/02/16 [Iron 100 Plus Tablet] Levothyroxine (Nf) [Synthroid] 200 mcg PO QAM 07/03/16 07/03/16 07/02/16 Previous Rx's Medication Instructions Recorded Last Taken Type DOXYCYCLINE Hyclate [Vibramycin 100 mg PO Q12HR #20 capsule 07/03/16 Unknown Rx CAP] oxyCODONE /ACETAMINOPHEN [Percocet 1 - 2 tab PO Q6HR PRN #14 tablet 07/03/16 Unknown Rx 5/325] Benzonatate [Tessalon Perle] 100 mg PO TID #30 capsule 11/19/17 Unknown Rx Dexchlorpheniram/Phenylephrine 1 each PO Q6H #15 tab 11/19/17 Unknown Rx [Rymed Tablet] Ibuprofen [Motrin 600 MG tab] 600 mg PO Q8H PRN #15 tablet 11/19/17 Unknown Rx Levothyroxine [Synthroid] 150 mcg PO QAM #15 tablet 05/28/18 Unknown Rx Ondansetron [Zofran Odt] 4 mg PO Q8HR PRN #12 tab.rapdis 01/06/21 Unknown Rx Amoxicillin [Amoxicillin TAB] 875 mg PO BID #20 tablet 01/30/21 Unknown Rx Allergies Allergy/AdvReac Type Severity Reaction Status Date / Time No Known Allergies Allergy Verified 01/06/21 16:50 ED Dental HPI - General Chief complaint: Headache Stated complaint: HEADACHE/SINUS INFECTION Time Seen by Provider: 01/30/21 21:27 Source: patient Mode of arrival: Ambulatory Limitations: No Limitations - Related Data Home Medications Medication Instructions Recorded Confirmed Last Taken Iron,Carb/Vit C/Vit B12/Folic 1 each PO DAILY 07/03/16 07/03/16 07/02/16 [Iron 100 Plus Tablet] Levothyroxine (Nf) [Synthroid] 200 mcg PO QAM 07/03/16 07/03/16 07/02/16 Previous Rx's Medication Instructions Recorded Last Taken Type DOXYCYCLINE Hyclate [Vibramycin 100 mg PO Q12HR #20 capsule 07/03/16 Unknown Rx CAP] oxyCODONE /ACETAMINOPHEN [Percocet 1 - 2 tab PO Q6HR PRN #14 tablet 07/03/16 Unknown Rx 5/325] Benzonatate [Tessalon Perle] 100 mg PO TID #30 capsule 11/19/17 Unknown Rx Dexchlorpheniram/Phenylephrine 1 each PO Q6H #15 tab 11/19/17 Unknown Rx [Rymed Tablet] Ibuprofen [Motrin 600 MG tab] 600 mg PO Q8H PRN #15 tablet 11/19/17 Unknown Rx Levothyroxine [Synthroid] 150 mcg PO QAM #15 tablet 05/28/18 Unknown Rx Ondansetron [Zofran Odt] 4 mg PO Q8HR PRN #12 tab.rapdis 01/06/21 Unknown Rx Amoxicillin [Amoxicillin TAB] 875 mg PO BID #20 tablet 01/30/21 Unknown Rx Allergies Allergy/AdvReac Type Severity Reaction Status Date / Time No Known Allergies Allergy Verified 01/06/21 16:50 ED Review of Systems ROS: Stated complaint: HEADACHE/SINUS INFECTION Other details as noted in HPI Comment: All other systems reviewed and negative ED Past Medical Hx - Past Medical History Previous Medical History?: Yes Additional medical history: hypothyroidism/ HIGH CHOLESTROL - Surgical History Past Surgical History?: Yes Additional Surgical History: thyroidectomy - Social History Smoking Status: Current Every Day Smoker Substance Use Type: Marijuana - Medications Home Medications: Home Medications Medication Instructions Recorded Confirmed Last Taken Type DOXYCYCLINE Hyclate [Vibramycin 100 mg PO Q12HR #20 capsule 07/03/16 Unknown Rx CAP] Iron,Carb/Vit C/Vit B12/Folic 1 each PO DAILY 07/03/16 07/03/16 07/02/16 History [Iron 100 Plus Tablet] Levothyroxine (Nf) [Synthroid] 200 mcg PO QAM 07/03/16 07/03/16 07/02/16 History oxyCODONE /ACETAMINOPHEN [Percocet 1 - 2 tab PO Q6HR PRN #14 tablet 07/03/16 Unknown Rx 5/325] Benzonatate [Tessalon Perle] 100 mg PO TID #30 capsule 11/19/17 Unknown Rx Dexchlorpheniram/Phenylephrine 1 each PO Q6H #15 tab 11/19/17 Unknown Rx [Rymed Tablet] Ibuprofen [Motrin 600 MG tab] 600 mg PO Q8H PRN #15 tablet 11/19/17 Unknown Rx Levothyroxine [Synthroid] 150 mcg PO QAM #15 tablet 05/28/18 Unknown Rx Ondansetron [Zofran Odt] 4 mg PO Q8HR PRN #12 tab.rapdis 01/06/21 Unknown Rx Amoxicillin [Amoxicillin TAB] 875 mg PO BID #20 tablet 01/30/21 Unknown Rx ED Physical Exam - General Limitations: No Limitations General appearance: alert, in no apparent distress - Head Head exam: Present: atraumatic, normocephalic - Eye Eye exam: Present: normal appearance - ENT ENT exam: Present: mucous membranes moist, other (Tenderness to the ethmoid and maxillary sinuses with gentle percussion. Decreased transillumination is noted. Some increased nasal congestion and swelling to the left sinuses when compared to the right pharynx mild erythema no exudate) - Neck Neck exam: Present: normal inspection - Respiratory Respiratory exam: Present: normal lung sounds bilaterally. Absent: respiratory distress, wheezes, rales - Cardiovascular Cardiovascular Exam: Present: regular rate, normal rhythm. Absent: systolic murmur, diastolic murmur, rubs, gallop - GI/Abdominal GI/Abdominal exam: Present: soft, normal bowel sounds - Extremities Exam Extremities exam: Present: normal inspection, full ROM, normal capillary refill - Back Exam Back exam: Present: normal inspection. Absent: CVA tenderness (R), CVA tenderness (L) - Neurological Exam Neurological exam: Present: alert, oriented X3, CN II-XII intact, normal gait - Psychiatric Psychiatric exam: Present: normal affect, normal mood - Skin Skin exam: Present: warm, dry, intact, normal color. Absent: rash ED Course Vital Signs 01/30/21 17:19 Temperature 98.0 F Pulse Rate 81 Respiratory 20 Rate Blood Pressure 116/72 O2 Sat by Pulse 100 Oximetry ED Medical Decision Making - Medical Decision Making This 29 patient presents with symptoms suspicious for likely nasal respiratory tract infection. Differential includes bacterial pneumonia, sinusitis, allergic rhinitis, COVID-19. Do not suspect underlying Cardiopulmonary process. I considered but think unlikely dangerous cause of this patient symptoms to include acute coronary syndrome, CHF or COPD exacerbations, pneumonia, pneumothorax. Patient is nontoxic appearing and not in need of emergent medical intervention. Plan: Reassurance, reassessment, [id number] medications, discharge with PCP follow-up Critical care attestation.: If time is entered above; I have spent that time in minutes in the direct care of this critically ill patient, excluding procedure time. ED Disposition Clinical Impression: Sinusitis Disposition: HOME / SELF CARE / HOMELESS Is pt being admited?: No Does the pt Need Aspirin: No Condition: Stable Instructions: Sinusitis, Adult, [id number], Sinusitis, Adult, Form - Headache Record, Sinus Headache, [id number] Prescriptions: Amoxicillin [Amoxicillin TAB] 875 mg PO BID #20 tablet Referrals: PRIMARY CARE, [Primary Care Provider] - 02/02/21 (Please keep appointment you have with your CLIENT SERVICES ASSISTANT on this day to further discuss other headache medications you can utilize there is safe for you )
[2021-01-30] MEDS ORDERED: ACETAMINOPHEN 325 MG TAB PO ONE (21:53)
[2021-01-31 00:04] VITALS: BP 115/72
== END 2021-01-31 00:03 | disposition home or self-care (01) ==
LOC: ED 17:17
DX: O26.891 Other specified pregnancy related conditions, first trimester (principal); J32.9 Chronic sinusitis, unspecified; Z3A.12 12 weeks gestation of pregnancy
CPT/HCPCS: 99282

== ENCOUNTER 2021-07-15 20:00 | Outpatient (CLI) | payer MEDICAID ==
[2021-07-15] MEDS ORDERED: LACTATED RINGERS 500 ML IV ONE (20:10)
[2021-07-15 20:16] VITALS: BP 124/76
[2021-07-15] MEDS ORDERED: LACTATED RINGERS 1,000 ML ONE (20:21)
[2021-07-15] MEDS ORDERED: TERBUTALINE 1 MG/1 ML INJ ONE (21:44)
[2021-07-15] MEDS ORDERED: TERBUTALINE 1 MG/1 ML INJ SUB-Q ONE (21:59)
== END 2021-07-15 22:20 | disposition home or self-care (01) ==
LOC: TRG 20:00 → APU 20:02 → TRG 22:20
PROVIDERS: ATTEND Obstetrics & Gynecology
DX: O62.9 Abnormality of forces of labor, unspecified (principal); O09.523 Supervision of elderly multigravida, third trimester; Z3A.36 36 weeks gestation of pregnancy
CPT/HCPCS: 59025; 96372; J3105; J7120; 96360; J3490

== ENCOUNTER 2021-07-20 00:54 | Inpatient (IN) | payer MEDICAID ==
[2021-07-20] MEDS ORDERED: BUTORPHANOL 2 MG/1 ML INJ IV PRN (01:11)
[2021-07-20] MEDS ORDERED: MINERAL OIL 30 ML ORAL LIQD PO PRN (01:11)
[2021-07-20] MEDS ORDERED: LIDOCAINE (2%) 20 MG/1 ML VIAL 20 ML MDV INFILTRATI ONE (01:11)
[2021-07-20] MEDS ORDERED: miSOPROStol 200 MCG TAB PR PRN (01:11)
[2021-07-20] MEDS ORDERED: CARBOPROST TROMETHAMINE 250 MCG/1 ML INJ IM PRN (01:11)
[2021-07-20] MEDS ORDERED: NALOXONE 0.4 MG/1 ML INJ IV PRN (01:11)
[2021-07-20] MEDS ORDERED: ACETAMINOPHEN 325 MG TAB PO PRN (01:11)
[2021-07-20] MEDS ORDERED: fentaNYL 100 MCG/2 ML INJ IV PRN (01:11)
[2021-07-20] MEDS ORDERED: ePHEDrine SULFATE 50 MG/1 ML INJ IV PRN (01:11)
[2021-07-20] MEDS ORDERED: TERBUTALINE 1 MG/1 ML INJ SUB-Q PRN (01:11)
[2021-07-20] MEDS ORDERED: LOPERAMIDE 2 MG CAP PO PRN (01:11)
[2021-07-20] MEDS ORDERED: OXYTOCIN 10 UNIT/1 ML INJ IM PRN (01:11)
[2021-07-20] MEDS ORDERED: METHYLERGONOVINE MALEATE 0.2 MG/ML VIAL IM PRN (01:11)
[2021-07-20] MEDS ORDERED: ONDANSETRON 4 MG/2 ML INJ IV PRN ×2 (01:11→03:41)
[2021-07-20] MEDS ORDERED: LACTATED RINGERS 1,000 ML IV SCH (01:15)
[2021-07-20] MEDS ORDERED: AMPICILLIN/NS 2 GM/100 ML 2 GM/100 ML BAG IV ONE (01:41)
[2021-07-20] MEDS ORDERED: OXYTOCIN DRIP 30 UNITS/500 ML BAG IV SCH ×4 (02:00→07:00)
--- NOTE | 2021-07-20 02:06 | History and Physical Report ---
History of Present Illness Date of examination: 07/20/21 Date of admission: 07/20/21 01:21 Chief complaint: my water broke, pain History of present illness: Pt is a 36 year old -[place] female JEMIMA 08/08/21 at 37w2d who presents with rupture of membranes shortly before midnight on 07/19/21 and regular painful contractions. She denies vaginal bleeding. She has had care at [facility] since 10 wks complicated by advanced maternal age, genital herpes without lesion or prodrome, hypothyroidism on Synthroid 300 mcg daily, right pedunculated fibroid, silent carrier for alpha thalassemia, and trichomonas treated with negative test of cure. Her GBS status is unknown at this time, but was collected last week. While provider en route, pt progressed from 2 cm to complete dilation and delivered a viable female . Please see delivery note. 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, trichomonas (treated with negative test of cure ) Family/Genetic History: none Social history: no significant social history - Obstetrical History Expected Date of Delivery: 08/08/21 Actual Gestation: 37 Week(s) 2 Day(s) : 6 Para: 5 Hx # Term Pregnancies: 5 Number of Pregnancies: 0 Spontaneous Abortions: 0 Induced : 0 Number of Living Children: 5 Medications and Allergies Allergies Allergy/AdvReac Type Severity Reaction Status Date / Time No Known Allergies Allergy Verified 01/06/21 16:50 Home Medications Medication Instructions Recorded Confirmed Last Taken Type DOXYCYCLINE Hyclate [Vibramycin 100 mg PO Q12HR #20 capsule 07/03/16 Unknown Rx CAP] Iron,Carb/Vit C/Vit B12/Folic 1 each PO DAILY 07/03/16 07/03/16 07/02/16 History [Iron 100 Plus Tablet] Levothyroxine (Nf) [Synthroid] 200 mcg PO QAM 07/03/16 07/03/16 07/02/16 History oxyCODONE /ACETAMINOPHEN [Percocet 1 - 2 tab PO Q6HR PRN #14 tablet 07/03/16 Unknown Rx 5/325] Benzonatate [Tessalon Perle] 100 mg PO TID #30 capsule 11/19/17 Unknown Rx Dexchlorpheniram/Phenylephrine 1 each PO Q6H #15 tab 11/19/17 Unknown Rx [Rymed Tablet] Ibuprofen [Motrin 600 MG tab] 600 mg PO Q8H PRN #15 tablet 11/19/17 Unknown Rx Levothyroxine [Synthroid] 150 mcg PO QAM #15 tablet 05/28/18 Unknown Rx Ondansetron [Zofran Odt] 4 mg PO Q8HR PRN #12 tab.rapdis 01/06/21 Unknown Rx Amoxicillin [Amoxicillin TAB] 875 mg PO BID #20 tablet 01/30/21 Unknown Rx Active Meds: Active Medications Acetaminophen (Acetaminophen 325 Mg Tab) 650 mg PO Q4H PRN PRN Reason: Pain, Mild (1-3) Butorphanol Tartrate (Butorphanol 2 Mg/1 Ml Inj) 1 mg IV Q2H PRN PRN Reason: Pain, Moderate(4-6) LABOR PAIN Carboprost Tromethamine (Carboprost Tromethamine 250 Mcg/1 Ml Inj) 250 mcg IM ONCE PRN PRN Reason: Uterine Bleeding Ephedrine Sulfate (Ephedrine Sulfate 50 Mg/1 Ml Inj) 10 mg IV Q2M PRN PRN Reason: Hypotension Fentanyl (Fentanyl 100 Mcg/2 Ml Inj) 100 mcg IV Q2H PRN PRN Reason: Pain,Severe (7-10) LABOR PAIN Last Admin: 07/20/21 01:37 Dose: 100 mcg Lactated Ringer's (Lactated Ringers) 1,000 mls @ 125 mls/hr IV DIRECT PRAKASH Ampicillin Sodium (Ampicillin/Ns 2 Gm/100 Ml) 2 gm in 100 mls @ 100 mls/hr IV ONCE ONE; Protocol Stop: 07/20/21 02:40 Ampicillin Sodium (Ampicillin/Ns 1 Gm/50 Ml) 1 gm in 50 mls @ 100 mls/hr IV Q4H PRAKASH; Protocol Oxytocin/Sodium Chloride (Pitocin/Ns 30 Unit/500ml) 30 units in 500 mls @ 2 mls/hr IV TITR PRAKASH; Protocol Oxytocin/Sodium Chloride (Pitocin/Ns 30 Unit/500ml) 30 units in 500 mls @ 40 mls/hr IV TITR PRAKASH; Protocol Loperamide HCl (Loperamide 2 Mg Cap) 2 mg PO ONCE PRN PRN Reason: give with Hemabate Mineral Oil (Mineral Oil 30 Ml Oral Liqd) 30 ml PO QHS PRN PRN Reason: Constipation Misoprostol (Misoprostol 200 Mcg Tab) 800 mcg NC ONCE PRN PRN Reason: Uterine Bleeding Naloxone HCl (Naloxone 0.4 Mg/1 Ml Inj) 0.1 mg IV Q2MIN PRN PRN Reason: Res Rate </= 8 or 02 SAT < 92% Ondansetron HCl (Ondansetron 4 Mg/2 Ml Inj) 4 mg IV Q8H PRN PRN Reason: Nausea And Vomiting Oxytocin (Oxytocin 10 Unit/1 Ml Inj) 10 unit IM ONCE PRN PRN Reason: Uterine Bleeding Terbutaline Sulfate (Terbutaline 1 Mg/1 Ml Inj) 0.25 mg SUB-Q ONCE PRN PRN Reason: Hyperstimulation/Hypertonicity Review of Systems All systems: negative - Vital Signs Vital signs: Vital Signs Pulse BP 70 116/71 07/20/21 01:07 07/20/21 01:07 Temp Pulse Resp BP Pulse Ox 74 18 116/71 99 07/20/21 01:28 07/20/21 01:37 07/20/21 01:07 07/20/21 01:28 - Physical Exam Breasts: Positive: deferred Abdomen: Positive: soft (gravid ) Extremities: Positive: normal - Obstetrical FHR: auscultation normal Uterine Contraction Monitor Mode: External Results All other labs normal. Assessment and Plan A: IUP at 37w2d SROM s/p Spontaneous Vaginal Delivery Precipitous Labor GBS unknown Hypothyroidism Genital Herpes without lesion or prodrome P: Admit to labor and delivery Routine care Continue to monitor clinical status
[2021-07-20 02:16] LABS: Hematocrit 34.3 % (30.3-42.9); Hemoglobin 11.2 gm/dl (10.1-14.3); Mean Corpuscular HGB Conc 33 % (30-34); Mean Corpuscular Volume 89 fl (79-97); Platelet Count 221 K/mm3 (140-440); Red Blood Count 3.87 M/mm3 (3.65-5.03); Red Cell Distribution Width 13.4 % (13.2-15.2)
--- NOTE | 2021-07-20 02:16 | Procedure Note ---
OB Delivery Note - Delivery Date of Delivery: 07/20/21 Surgeon: ISMAEL ROSADO Estimated blood loss: 500cc - Vaginal Delivery presentation: vertex Delivery position: OA Intrapartum events: labor-<37 weeks, PROM->1hr before delivery, precipitous labor- <3hr, uterine atony (s/p Methergine 0.2 mg IM ) Delivery induction: none Delivery monitor: external FHT, external uterine Route of delivery: Delivery placenta: spontaneous Delivery cord: nuchal cord (manually reduced, x 1 ) Episiotomy: none Delivery laceration: other (Vaginal abrasions hemostatic without repair ) Anesthesia: intravenous Delivery comments: While banquet set up person provider en route, pt rapidly progressed from 2 cm to 10 cm and delivered a viable female via spontaneous vaginal delivery attended by nurses at the bedside. Head delivered, Nuchal cord x 1 delivered manually, followed by shoulders and body. Placenta delivered spontaneously. Upon entry to room by banquet set up person provider, baby and placenta had delivered. Vagina and perineum explored and hemostatic vaginal abrasions noted. Minimal uterine atony noted. Methergine 0.2 mg IM administered. EBL 500mL. - Infant A at 1 minute: 8 at 5 minutes: 9 Gender: Female (2470g (5lb 7oz) @ 0122 am)
[2021-07-20] MEDS ORDERED: MAGNESIUM HYDROXIDE (MOM) ORAL LIQD UDC PO PRN (03:41)
[2021-07-20] MEDS ORDERED: BENZOCAINE/MENTHOL 20/0.5% TOP SPRAY 56 GM TP PRN (03:41)
[2021-07-20] MEDS ORDERED: LANOLIN/ZINC/DIMETHICONE (LANSINOH) 7 GM TP PRN ×2 (03:41)
[2021-07-20] MEDS ORDERED: diphenhydrAMINE 25 MG CAP PO PRN (03:41)
[2021-07-20] MEDS ORDERED: PROMETHAZINE 25 MG TAB PO PRN (03:41)
[2021-07-20] MEDS ORDERED: WITCH HAZEL/ GLYCERIN PAD TP PRN (03:41)
[2021-07-20] MEDS ORDERED: PROMETHAZINE 25 MG RECT SUPP PR PRN (03:41)
[2021-07-20] MEDS: HYDROcodone/ACETAMINOPHEN 5-325 MG TAB PO PRN ×3 (04:49→22:00)
[2021-07-20] MEDS: LEVOTHYROXINE 150 MCG TAB PO SCH (05:37)
[2021-07-20] MEDS ORDERED: AMPICILLIN/NS 1 GM/50 ML 1 GM/50 ML BAG IV SCH (06:00)
[2021-07-20] MEDS: IBUPROFEN 800 MG TAB PO PRN ×2 (08:10→18:03)
[2021-07-20] MEDS: FERROUS SULFATE 325 MG TAB PO SCH ×2 (10:23→21:57)
[2021-07-20 16:08] LABS: Hematocrit 25.9 % (30.3-42.9); Hemoglobin 8.6 gm/dl (10.1-14.3)
[2021-07-21] MEDS: IBUPROFEN 800 MG TAB PO PRN ×3 (01:37→21:29)
[2021-07-21] MEDS: LEVOTHYROXINE 150 MCG TAB PO SCH (05:27)
[2021-07-21] MEDS ORDERED: TETANUS,DIPH,PERTUSS(ACELL) VACCINE 0.5 ML SYRINGE IM ONE (06:00)
[2021-07-21] MEDS ORDERED: MEASLES, MUMPS & RUBELLA 12,500 UNIT/0.5 ML VACCINE SUB-Q ONE (06:00)
--- NOTE | 2021-07-21 09:43 | Discharge Summary ---
Providers - Providers Date of Admission: 07/20/21 01:21 Date of discharge: 07/22/21 Attending physician: ISMAEL ROSADO 07/20/21 03:41 Consult to Unified Communications Engineer [CONS] Routine Reason For Exam: assistance with , SNS Primary care physician: XIAO MORALES Hospitalization Reason for admission: active labor Delivery: Episiotomy: none Laceration: none Other procedures: none complications: none Discharge diagnosis: IUP at term delivered [place] baby: female Hospital course: Pt is a 36 year old -Nepalese female JEMIMA 08/08/21 at 37w2d who presents with rupture of membranes shortly before midnight on 07/19/21 and regular painful contractions. She denies vaginal bleeding. She has had care at [facility] since 10 wks complicated by advanced maternal age, genital herpes without lesion or prodrome, hypothyroidism on Synthroid 300 mcg daily, right pedunculated fibroid, silent carrier for alpha thalassemia, and trichomonas treated with negative test of cure. Her GBS status is unknown at this time, but was collected last week. While provider en route, pt progressed from 2 cm to complete dilation and delivered a viable female . Please see delivery note. Condition at discharge: Good Disposition: 01 HOME / SELF CARE / HOMELESS - Discharge Diagnoses (1) Status post normal vaginal delivery Status: Acute (2) Anemia Status: Acute Qualifiers: Anemia type: other cause Other causes of anemia: acute posthemorrhagic Qualified Code(s): D62 - Acute posthemorrhagic anemia Comment: Asymptomatic Increase iron rich foods into diet Plan - Discharge Medications Prescriptions: Ibuprofen [Motrin 800 MG tab] 800 mg PO Q8HR PRN #30 tablet PRN Reason: Pain, Mild (1-3) - Provider Discharge Summary Activity: routine, no sex for 6 weeks, no heavy lifting 4 weeks, no strenuous exercise Diet: other (Iron rich food) Instructions: routine Additional instructions: [] Smoking cessation referral if applicable(refer to patient education folder for contact #) [] Refer to [facility] Booklet Call your doctor immediately for: * Fever > 100.5 * Heavy vaginal bleeding ( >1 pad per hour) * Severe persistent headache * Shortness of breath * Reddened, hot, painful area to leg or breast * Drainage or odor from incision. * Keep incision clean and dry at all times and follow doctor's instructions regarding bathing/showering - Follow up plan Follow up: XIAO MORALES MD [Primary Care Provider] - 6 Weeks
[2021-07-21] MEDS: FERROUS SULFATE 325 MG TAB PO SCH ×2 (10:44→21:29)
[2021-07-21] MEDS: HYDROcodone/ACETAMINOPHEN 5-325 MG TAB PO PRN ×2 (10:45→16:58)
[2021-07-22] MEDS: HYDROcodone/ACETAMINOPHEN 5-325 MG TAB PO PRN (04:01)
[2021-07-22] MEDS: LEVOTHYROXINE 150 MCG TAB PO SCH (05:21)
[2021-07-22 09:33] VITALS: BP 115/63
[2021-07-22] MEDS: FERROUS SULFATE 325 MG TAB PO SCH (09:53)
[2021-07-22] MEDS: IBUPROFEN 800 MG TAB PO PRN (09:53)
== END 2021-07-22 10:40 | disposition home or self-care (01) | DRG 774 ==
LOC: TRG 00:54 → APU 01:00 → LD 01:04 → TRG 01:19 → LD 01:21 → OB 03:51
PROVIDERS: ADMIT Obstetrics & Gynecology; ATTEND Obstetrics & Gynecology
PROC: 10E0XZZ Delivery of Products of Conception, External Approach (ICD-10-PCS; principal; 2021-07-20)
PROC: 3E0234Z Introduction of Serum, Toxoid and Vaccine into Muscle, Percutaneous Approach (ICD-10-PCS; 2021-07-21)
PROC: 3E0134Z Introduction of Serum, Toxoid and Vaccine into Subcutaneous Tissue, Percutaneous Approach (ICD-10-PCS; 2021-07-21)
DX: O69.81X0 Labor and delivery complicated by cord around neck, without compression, not applicable or unspecified (principal); O98.52 Other viral diseases complicating childbirth; Z37.0 Single live birth; Z20.822 Contact with and (suspected) exposure to COVID-19; Z23 Encounter for immunization; B00.9 Herpesviral infection, unspecified; O99.284 Endocrine, nutritional and metabolic diseases complicating childbirth; O62.3 Precipitate labor; O42.02 Full-term premature rupture of membranes, onset of labor within 24 hours of rupture; E03.9 Hypothyroidism, unspecified; O62.2 Other uterine inertia; Z3A.37 37 weeks gestation of pregnancy; O71.89 Other specified obstetric trauma; O90.81 Anemia of the puerperium; D62 Acute posthemorrhagic anemia
CPT/HCPCS: 36415; 85014; 85018; 85027; 86592; 86850; 86900; 86901; 88307; 99211; G0378; G0463; J2210; J3010; U0003